=== PATIENT | female | born 1930 | race Caucasian/White ===

== ENCOUNTER 2017-06-02 12:25 | Inpatient (IN) | payer OTHER ==
[2017-06-02 14:45] LABS: URINE PH (Dip) POC 5.5 (5.0-8.5)
[2017-06-02 14:45] LABS: URINE BLOOD (Dip) POC Negative (NEGATIVE); URINE GLUCOSE (Dip) POC Negative (NEGATIVE); URINE KETONES (Dip) POC Trace (NEGATIVE); URINE LEUKOCYTE EST (Dip) POC Negative (NEGATIVE); URINE NITRITE (Dip) POC Negative (NEGATIVE); URINE TOTAL PROTEIN POC Trace (NEGATIVE)
[2017-06-02 15:39] LABS: ADD MAN DIFF? NO
[2017-06-02] MEDS: ONDANSETRON 4 MG INJ IV (15:40)
[2017-06-02] MEDS: morphine 2 MG INJ IV ×3 (15:40→23:52)
[2017-06-02 15:45] LABS: WHITE BLOOD COUNT 6.7 10^3/ul (4.8-10.8)
[2017-06-02 15:45] LABS: ABNORMAL IP MESSAGE 1; BASOPHILS % 0.4 % (0.0-2.0); EOSINOPHILS % 0.3 % (0.0-7.0); HEMATOCRIT 29.6 % (37.0-47.0); HEMOGLOBIN 8.5 g/dl (12.0-16.0); LYMPHOCYTES # 1.1 10^3/ul (0.8-2.9); LYMPHOCYTES % 16.1 % (15.0-51.0); MEAN CORPUSCULAR HEMOGLOBIN 23.2 pg (29.0-33.0); MEAN CORPUSCULAR HGB CONC 28.7 g/dl (32.0-37.0); MEAN CORPUSCULAR VOLUME 80.9 fl (82.0-101.0); MEAN PLATELET VOLUME 9.5 fl (7.4-10.4); MONOCYTE # 0.4 10^3/ul (0.3-0.9); MONOCYTES % 6.3 % (0.0-11.0); NEUTROPHIL # 5.1 10^3/ul (1.6-7.5); NEUTROPHILS % 76.6 % (39.0-77.0); PLATELET COUNT 310 10^3/UL (140-415); RED BLOOD COUNT 3.66 10^6/ul (4.20-5.40); RED CELL DISTRIBUTION WIDTH 17.2 % (11.5-14.5)
[2017-06-02 15:48] LABS: POSITIVE DIFF @See below
[2017-06-02 16:03] LABS: ALANINE AMINOTRANSFERASE 21 IU/L (13-69); ALBUMIN 4.7 g/dl (3.3-4.9); ALBUMIN/GLOBULIN RATIO 1.17; ALKALINE PHOSPHATASE 101 IU/L (42-121); ANION GAP 18 (8-16); ASPARTATE AMINO TRANSFERASE 29 IU/L (15-46); BILIRUBIN,INDIRECT 0.3 mg/dl (0-1.1); BILIRUBIN,TOTAL 0.3 mg/dl (0.2-1.3); BLOOD UREA NITROGEN 21 mg/dl (7-20); CARBON DIOXIDE 27 mmol/L (21-31); CHLORIDE 104 mmol/L (97-110); CREATININE 0.78 mg/dl (0.44-1.00); GLUCOSE 109 mg/dl (70-220); LIPASE 95 U/L (23-300); POTASSIUM 4.7 mmol/L (3.5-5.1); SODIUM 144 mmol/L (135-144); TOTAL PROTEIN 8.7 g/dl (6.1-8.1)
[2017-06-02 16:07] LABS: INR 1.04; PROTIME 13.7 Sec (11.9-14.9); PT RATIO 1.1
[2017-06-02 16:08] LABS: PARTIAL THROMBOPLASTIN TIME 28.6 Sec (25.0-35.0)
[2017-06-02] MEDS ORDERED: HALOPERIDOL 5 MG INJ (16:10)
[2017-06-02] MEDS: HALOPERIDOL 5 MG INJ IM ×2 (16:39→21:32)
[2017-06-02] MEDS: LORAZEPAM 2 MG INJ IV ×2 (18:12→22:24)
[2017-06-02] MEDS: NA PHOSPHATE/BIPHOS 133 ML ENEMA PR (18:30)
[2017-06-02] MEDS ORDERED: NA PHOSPHATE/BIPHOS 133 ML ENEMA PR (19:30)
[2017-06-02] MEDS ORDERED: NACL 0.9% 3 ML SYG IV (19:30)
[2017-06-02] MEDS ORDERED: DOCUSATE SODIUM 100 MG CAP PO (19:30)
[2017-06-02 20:08] LABS: IRON 21 ug/dl (35-150)
[2017-06-02 20:18] LABS: % IRON SATURATION 4 % SAT (22-52); TOTAL IRON BINDING CAPACITY 536 ug/dl (241-421)
[2017-06-02 21:24] LABS: FREE T3 3.97 pg/ml (2.77-5.27)
[2017-06-02 22:04] LABS: FREE T4 (FREE THYROXINE) 1.88 ng/dl (0.85-1.93)
[2017-06-03] MEDS: DIPHENHYDRAMINE 50 MG INJ IV (00:46)
[2017-06-03 01:04] LABS: OCCULT BLOOD STOOL NEGATIVE (NEGATIVE)
[2017-06-03] MEDS: NALOXONE (0.4 MG/ML) INJ IV ×2 (01:20→01:25)
[2017-06-03] MEDS: SOD CHLORIDE 0.9% 1,000 ML IV ×2 (01:26→15:48)
[2017-06-03 01:28] LABS: AADO2 Arterial 563.9 mmHg (7.0-24.0); Arterial Base Excess -6.4 mmol/L (-3.0-3); Arterial Blood Gas Oxygen Sat 87.5 mmHG (95.0-100.0); Arterial COHb 0.3 % (0.0-3.0); Arterial HCO3 23.3 mmol/L (22.0-26.0); Arterial MetHb 0.3 % (0.0-1.5); Arterial Total Hemglobin 9.2 g/dl (12.0-18.0); Arterial pCO2 73.2 mmhg (35-45); MODE MASK - NRB; Site Right Brachial
[2017-06-03] MEDS ORDERED: KETOROLAC 15 MG INJ IV (01:45)
[2017-06-03] MEDS: ALBUTEROL/IPRATROPIUM (NEB) 3 ML AMP HHN ×2 (01:54→20:23)
[2017-06-03 02:45] LABS: Arterial Base Excess -0.9 mmol/L (-3.0-3); Arterial Blood Gas Oxygen Sat 99.9 mmHG (95.0-100.0); Arterial COHb 0.2 % (0.0-3.0); Arterial Fraction of Oxyhgb 99.3 % (93.0-99.0); Arterial HCO3 24.6 mmol/L (22.0-26.0); Arterial MetHb 0.4 % (0.0-1.5); Arterial Total Hemglobin 8.3 g/dl (12.0-18.0); Arterial pCO2 44.3 mmhg (35-45); Blood Gas IEPAP 18/8; MODE MASK - BIPAP; Site LB
[2017-06-03] MEDS: HALOPERIDOL 5 MG INJ IM (05:08)
[2017-06-03 05:20] LABS: ADD MAN DIFF? NO
[2017-06-03 05:25] LABS: WHITE BLOOD COUNT 10.4 10^3/ul (4.8-10.8)
[2017-06-03 05:25] LABS: ABNORMAL IP MESSAGE 1; BASOPHILS % 0.2 % (0.0-2.0); HEMATOCRIT 25.2 % (37.0-47.0); HEMOGLOBIN 7.1 g/dl (12.0-16.0); LYMPHOCYTES # 0.5 10^3/ul (0.8-2.9); LYMPHOCYTES % 4.4 % (15.0-51.0); MEAN CORPUSCULAR HGB CONC 28.2 g/dl (32.0-37.0); MEAN CORPUSCULAR VOLUME 81.6 fl (82.0-101.0); MEAN PLATELET VOLUME 9.4 fl (7.4-10.4); MONOCYTES % 9.2 % (0.0-11.0); NEUTROPHIL # 8.9 10^3/ul (1.6-7.5); NEUTROPHILS % 85.7 % (39.0-77.0); PLATELET COUNT 253 10^3/UL (140-415); RED BLOOD COUNT 3.09 10^6/ul (4.20-5.40); RED CELL DISTRIBUTION WIDTH 17.1 % (11.5-14.5)
[2017-06-03 05:47] LABS: ALANINE AMINOTRANSFERASE 56 IU/L (13-69); ALBUMIN 3.8 g/dl (3.3-4.9); ALBUMIN/GLOBULIN RATIO 1.26; ALKALINE PHOSPHATASE 81 IU/L (42-121); ANION GAP 17 (8-16); ASPARTATE AMINO TRANSFERASE 51 IU/L (15-46); BILIRUBIN,INDIRECT 0.1 mg/dl (0-1.1); BILIRUBIN,TOTAL 0.1 mg/dl (0.2-1.3); BLOOD UREA NITROGEN 20 mg/dl (7-20); CALCIUM 8.6 mg/dl (8.4-10.2); CARBON DIOXIDE 27 mmol/L (21-31); CHLORIDE 108 mmol/L (97-110); CREATININE 0.74 mg/dl (0.44-1.00); GLUCOSE 118 mg/dl (70-220); POTASSIUM 3.9 mmol/L (3.5-5.1); SODIUM 148 mmol/L (135-144); TOTAL PROTEIN 6.8 g/dl (6.1-8.1)
[2017-06-03] MEDS: PANTOPRAZOLE (EC) 40 MG TAB PO (05:49)
[2017-06-03 06:01] LABS: POSITIVE DIFF @See below
[2017-06-03] MEDS: KETOROLAC 15 MG INJ IV ×2 (06:45→12:46)
[2017-06-03] MEDS: ENOXAPARIN 40 MG/0.4 ML SYG SC (09:42)
[2017-06-03 11:21] LABS: HEMATOCRIT 24.4 % (37.0-47.0)
[2017-06-03 11:24] LABS: HEMOGLOBIN 6.9 g/dl (12.0-16.0)
[2017-06-03 11:41] LABS: ALANINE AMINOTRANSFERASE 51 IU/L (13-69); ALBUMIN 3.7 g/dl (3.3-4.9); ALBUMIN/GLOBULIN RATIO 1.27; ALKALINE PHOSPHATASE 84 IU/L (42-121); ANION GAP 15 (8-16); ASPARTATE AMINO TRANSFERASE 61 IU/L (15-46); BILIRUBIN,INDIRECT 0.2 mg/dl (0-1.1); BILIRUBIN,TOTAL 0.2 mg/dl (0.2-1.3); BLOOD UREA NITROGEN 20 mg/dl (7-20); CALCIUM 8.1 mg/dl (8.4-10.2); CARBON DIOXIDE 26 mmol/L (21-31); CHLORIDE 111 mmol/L (97-110); CREATININE 0.75 mg/dl (0.44-1.00); GLUCOSE 79 mg/dl (70-220); POTASSIUM 3.5 mmol/L (3.5-5.1); SODIUM 148 mmol/L (135-144); TOTAL PROTEIN 6.6 g/dl (6.1-8.1)
[2017-06-03 11:49] LABS: D-DIMER 1154.06 ng/ml (<460)
[2017-06-03 12:13] LABS: FERRITIN 6.6 ng/ml (11.1-264.0)
[2017-06-03] MEDS: LORAZEPAM 2 MG INJ IV ×2 (13:08→23:00)
[2017-06-03] MEDS: IODIXANOL LOCM 100 ML BTL (14:30)
[2017-06-03] MEDS: SOD CHLORIDE 0.9% 100 ML (14:33)
[2017-06-03] MEDS: SOD FERRIC GLUC COMPLX 125 MG in SOD CHLORIDE 0.9% 100 ML IVPB (16:10)
[2017-06-03 18:31] LABS: IMMEDIATE SPIN CROSSMATCH 1 1
[2017-06-04] MEDS: LORAZEPAM 2 MG INJ IV ×3 (02:47→12:32)
[2017-06-04] MEDS: HALOPERIDOL 5 MG INJ IM (05:10)
[2017-06-04] MEDS: PANTOPRAZOLE (EC) 40 MG TAB PO (05:39)
[2017-06-04] MEDS: SOD CHLORIDE 0.9% 1,000 ML IV (06:39)
[2017-06-04 07:49] LABS: ADD MAN DIFF? NO
[2017-06-04 07:56] LABS: BASOPHILS % 0.3 % (0.0-2.0); EOSINOPHILS % 0.3 % (0.0-7.0); HEMATOCRIT 28.7 % (37.0-47.0); HEMOGLOBIN 8.6 g/dl (12.0-16.0); LYMPHOCYTES # 0.7 10^3/ul (0.8-2.9); LYMPHOCYTES % 4.8 % (15.0-51.0); MEAN CORPUSCULAR HEMOGLOBIN 24.8 pg (29.0-33.0); MEAN CORPUSCULAR VOLUME 82.7 fl (82.0-101.0); MEAN PLATELET VOLUME 10.1 fl (7.4-10.4); MONOCYTE # 0.9 10^3/ul (0.3-0.9); MONOCYTES % 5.8 % (0.0-11.0); NEUTROPHIL # 13.3 10^3/ul (1.6-7.5); NEUTROPHILS % 88.1 % (39.0-77.0); PLATELET COUNT 239 10^3/UL (140-415); RED BLOOD COUNT 3.47 10^6/ul (4.20-5.40); RED CELL DISTRIBUTION WIDTH 16.8 % (11.5-14.5)
[2017-06-04 07:56] LABS: WHITE BLOOD COUNT 15.1 10^3/ul (4.8-10.8)
[2017-06-04 12:25] LABS: B-TYPE NATRIURETIC PEPTIDE 695 PG/ML (0-450)
[2017-06-04] MEDS: LEVOFLOXACIN 750MG/D5W (PMX) 150 ML IVPB (12:39)
[2017-06-04] MEDS: SOD FERRIC GLUC COMPLX 125 MG in SOD CHLORIDE 0.9% 100 ML IVPB (17:38)
[2017-06-04] MEDS: QUETIAPINE 25 MG TAB PO (20:01)
[2017-06-05] MEDS: PANTOPRAZOLE (EC) 40 MG TAB PO (05:46)
[2017-06-05 07:34] LABS: ADD MAN DIFF? NO
[2017-06-05 07:44] LABS: ABNORMAL IP MESSAGE 1; BASOPHILS % 0.1 % (0.0-2.0); EOSINOPHILS % 0.1 % (0.0-7.0); HEMATOCRIT 29.8 % (37.0-47.0); HEMOGLOBIN 8.6 g/dl (12.0-16.0); LYMPHOCYTES # 0.7 10^3/ul (0.8-2.9); LYMPHOCYTES % 4.8 % (15.0-51.0); MEAN CORPUSCULAR HGB CONC 28.9 g/dl (32.0-37.0); MEAN PLATELET VOLUME 9.9 fl (7.4-10.4); MONOCYTE # 0.9 10^3/ul (0.3-0.9); MONOCYTES % 6.7 % (0.0-11.0); NEUTROPHILS % 87.6 % (39.0-77.0); PLATELET COUNT 252 10^3/UL (140-415); RED BLOOD COUNT 3.59 10^6/ul (4.20-5.40)
[2017-06-05 07:44] LABS: WHITE BLOOD COUNT 13.7 10^3/ul (4.8-10.8)
[2017-06-05 08:00] LABS: ANION GAP 18 (8-16); BLOOD UREA NITROGEN 21 mg/dl (7-20); CALCIUM 9.9 mg/dl (8.4-10.2); CARBON DIOXIDE 26 mmol/L (21-31); CHLORIDE 114 mmol/L (97-110); CREATININE 0.73 mg/dl (0.44-1.00); GLUCOSE 95 mg/dl (70-220); MAGNESIUM 2.1 mg/dl (1.7-2.5); PHOSPHORUS 2.4 mg/dl (2.5-4.9); POTASSIUM 3.6 mmol/L (3.5-5.1); SODIUM 154 mmol/L (135-144)
[2017-06-05 08:09] LABS: POSITIVE DIFF @See below
[2017-06-05] MEDS: QUETIAPINE 25 MG TAB PO ×2 (09:00→21:12)
[2017-06-05 09:10] LABS: AADO2 Arterial 140.2 mmHg (7.0-24.0); Arterial Base Excess -1.2 mmol/L (-3.0-3); Arterial Blood Gas Oxygen Sat 97.2 mmHG (95.0-100.0); Arterial COHb 0.3 % (0.0-3.0); Arterial Fraction of Oxyhgb 96.8 % (93.0-99.0); Arterial HCO3 23.7 mmol/L (22.0-26.0); Arterial MetHb 0.1 % (0.0-1.5); Arterial Total Hemglobin 8.8 g/dl (12.0-18.0); Blood Gas IEPAP 18/8; MODE MASK - BIPAP; Site LB
[2017-06-05] MEDS: SOD FERRIC GLUC COMPLX 125 MG in SOD CHLORIDE 0.9% 100 ML IVPB (17:18)
[2017-06-06] MEDS: LORAZEPAM 2 MG INJ IV (02:00)
[2017-06-06] MEDS: PANTOPRAZOLE (EC) 40 MG TAB PO (06:00)
[2017-06-06] MEDS: QUETIAPINE 25 MG TAB PO (09:22)
[2017-06-06] MEDS ORDERED: VITAMIN A & D 5 GM OINT PACKET TOP (11:05)
[2017-06-06] MEDS: LEVOFLOXACIN 750MG/D5W (PMX) 150 ML IVPB (11:07)
[2017-06-06] MEDS ORDERED: DEXTROSE 5% WATER 500 ML BAG IV ×2 (12:30→18:00)
[2017-06-06 12:49] LABS: ADD MAN DIFF? NO
[2017-06-06 12:51] LABS: WHITE BLOOD COUNT 8.1 10^3/ul (4.8-10.8)
[2017-06-06 12:51] LABS: ABNORMAL IP MESSAGE 1; BASOPHILS % 0.2 % (0.0-2.0); EOSINOPHILS # 0.1 10^3/ul (0.0-0.5); HEMATOCRIT 30.6 % (37.0-47.0); HEMOGLOBIN 8.7 g/dl (12.0-16.0); LYMPHOCYTES # 0.7 10^3/ul (0.8-2.9); MEAN CORPUSCULAR HGB CONC 28.4 g/dl (32.0-37.0); MEAN CORPUSCULAR VOLUME 84.3 fl (82.0-101.0); MEAN PLATELET VOLUME 9.5 fl (7.4-10.4); MONOCYTE # 0.7 10^3/ul (0.3-0.9); MONOCYTES % 8.5 % (0.0-11.0); NEUTROPHIL # 6.5 10^3/ul (1.6-7.5); NEUTROPHILS % 80.6 % (39.0-77.0); PLATELET COUNT 226 10^3/UL (140-415); RED BLOOD COUNT 3.63 10^6/ul (4.20-5.40); RED CELL DISTRIBUTION WIDTH 17.6 % (11.5-14.5)
[2017-06-06 12:52] LABS: POSITIVE DIFF @See below
[2017-06-06] MEDS: morphine 2 MG INJ IV (12:54)
[2017-06-06] MEDS: DEXTROSE 5%-0.45% NACL 1,000 ML IV ×2 (13:00→23:15)
[2017-06-06 13:08] LABS: ANION GAP 17 (8-16); BLOOD UREA NITROGEN 29 mg/dl (7-20); CARBON DIOXIDE 27 mmol/L (21-31); CHLORIDE 117 mmol/L (97-110); GLUCOSE 105 mg/dl (70-220); POTASSIUM 3.7 mmol/L (3.5-5.1); SODIUM 157 mmol/L (135-144)
[2017-06-06 13:28] LABS: AADO2 Arterial 81.6 mmHg (7.0-24.0); Arterial Base Excess 2.3 mmol/L (-3.0-3); Arterial Blood Gas Oxygen Sat 89.7 mmHG (95.0-100.0); Arterial COHb 0.5 % (0.0-3.0); Arterial Fraction of Oxyhgb 89.1 % (93.0-99.0); Arterial HCO3 27.3 mmol/L (22.0-26.0); Arterial MetHb 0.2 % (0.0-1.5); Arterial Total Hemglobin 9.4 g/dl (12.0-18.0); Arterial pCO2 44.5 mmhg (35-45); MODE NASAL CANNULA; Site Right Brachial
[2017-06-06] MEDS: DEXTROSE 5% 250 ML IV (14:45)
[2017-06-06] MEDS: DEXTROSE 5% 500 ML IV (18:00)
[2017-06-06] MEDS: SOD FERRIC GLUC COMPLX 125 MG in SOD CHLORIDE 0.9% 100 ML IVPB (18:14)
[2017-06-07] MEDS: PANTOPRAZOLE (EC) 40 MG TAB PO (06:29)
[2017-06-07] MEDS: DEXTROSE 5%-0.45% NACL 1,000 ML IV ×2 (07:40→18:30)
[2017-06-07 09:27] LABS: ADD MAN DIFF? NO
[2017-06-07 09:31] LABS: ABNORMAL IP MESSAGE 1; BASOPHILS % 0.4 % (0.0-2.0); EOSINOPHILS # 0.2 10^3/ul (0.0-0.5); EOSINOPHILS % 2.9 % (0.0-7.0); HEMATOCRIT 30.5 % (37.0-47.0); HEMOGLOBIN 8.8 g/dl (12.0-16.0); LYMPHOCYTES # 0.9 10^3/ul (0.8-2.9); LYMPHOCYTES % 11.5 % (15.0-51.0); MEAN CORPUSCULAR HEMOGLOBIN 23.9 pg (29.0-33.0); MEAN CORPUSCULAR HGB CONC 28.9 g/dl (32.0-37.0); MEAN CORPUSCULAR VOLUME 82.9 fl (82.0-101.0); MONOCYTE # 0.8 10^3/ul (0.3-0.9); MONOCYTES % 9.9 % (0.0-11.0); NEUTROPHIL # 5.8 10^3/ul (1.6-7.5); NEUTROPHILS % 73.6 % (39.0-77.0); PLATELET COUNT 229 10^3/UL (140-415); RED BLOOD COUNT 3.68 10^6/ul (4.20-5.40); RED CELL DISTRIBUTION WIDTH 17.9 % (11.5-14.5)
[2017-06-07 09:31] LABS: WHITE BLOOD COUNT 7.9 10^3/ul (4.8-10.8)
[2017-06-07 09:32] LABS: POSITIVE DIFF @See below
[2017-06-07 09:54] LABS: ANION GAP 13 (8-16); BLOOD UREA NITROGEN 24 mg/dl (7-20); CALCIUM 9.3 mg/dl (8.4-10.2); CARBON DIOXIDE 30 mmol/L (21-31); CHLORIDE 112 mmol/L (97-110); CREATININE 0.77 mg/dl (0.44-1.00); GLUCOSE 133 mg/dl (70-220); MAGNESIUM 1.8 mg/dl (1.7-2.5); PHOSPHORUS 1.8 mg/dl (2.5-4.9); POTASSIUM 3.1 mmol/L (3.5-5.1); SODIUM 152 mmol/L (135-144)
[2017-06-07] MEDS ORDERED: POLYETHYLENE GLYCOL 3350 119 GM POWDER PO (12:30)
[2017-06-07] MEDS: POLYETHYLENE GLYCOL 17 GM PACKET PO (15:04)
[2017-06-07] MEDS: DEXTROSE 5% WATER 500 ML BAG IV (15:50)
[2017-06-07] MEDS: DEXTROSE 5%-0.45% NACL 500 ML IV (16:05)
[2017-06-07] MEDS: ACETAMINOPHEN 325 MG TAB PO (16:50)
[2017-06-07] MEDS: SOD FERRIC GLUC COMPLX 125 MG in SOD CHLORIDE 0.9% 100 ML IVPB (16:52)
[2017-06-07] MEDS: POTASSIUM CHLORIDE 100 ML IVPB ×2 (20:00→22:00)
[2017-06-08] MEDS: DEXTROSE 5%-0.45% NACL 1,000 ML IV (05:47)
[2017-06-08] MEDS: PANTOPRAZOLE (EC) 40 MG TAB PO (05:47)
[2017-06-08 08:24] LABS: ADD MAN DIFF? NO
[2017-06-08 08:36] LABS: BASOPHIL # 0.1 10^3/ul (0.0-0.1); BASOPHILS % 0.7 % (0.0-2.0); EOSINOPHILS # 0.3 10^3/ul (0.0-0.5); EOSINOPHILS % 3.6 % (0.0-7.0); HEMATOCRIT 30.7 % (37.0-47.0); LYMPHOCYTES # 1.1 10^3/ul (0.8-2.9); LYMPHOCYTES % 14.5 % (15.0-51.0); MEAN CORPUSCULAR HEMOGLOBIN 24.3 pg (29.0-33.0); MEAN CORPUSCULAR HGB CONC 29.3 g/dl (32.0-37.0); MEAN CORPUSCULAR VOLUME 82.7 fl (82.0-101.0); MEAN PLATELET VOLUME 10.2 fl (7.4-10.4); MONOCYTE # 0.8 10^3/ul (0.3-0.9); MONOCYTES % 10.6 % (0.0-11.0); NEUTROPHILS % 69.2 % (39.0-77.0); PLATELET COUNT 235 10^3/UL (140-415); RED BLOOD COUNT 3.71 10^6/ul (4.20-5.40); RED CELL DISTRIBUTION WIDTH 18.6 % (11.5-14.5)
[2017-06-08 08:36] LABS: WHITE BLOOD COUNT 7.2 10^3/ul (4.8-10.8)
[2017-06-08] MEDS ORDERED: POLYETHYLENE GLYCOL 3350 119 GM POWDER PO ×2 (09:00)
[2017-06-08 09:06] LABS: ANION GAP 14 (8-16); BLOOD UREA NITROGEN 17 mg/dl (7-20); CALCIUM 9.6 mg/dl (8.4-10.2); CARBON DIOXIDE 30 mmol/L (21-31); CHLORIDE 111 mmol/L (97-110); CREATININE 0.61 mg/dl (0.44-1.00); GLUCOSE 136 mg/dl (70-220); POTASSIUM 3.7 mmol/L (3.5-5.1); SODIUM 151 mmol/L (135-144)
[2017-06-08] MEDS: DEXTROSE 5% 1,000 ML IV (12:11)
[2017-06-09] MEDS: PANTOPRAZOLE (EC) 40 MG TAB PO (06:30)
[2017-06-09 07:45] LABS: ABNORMAL IP MESSAGE 1; HEMATOCRIT 30.4 % (37.0-47.0); HEMOGLOBIN 8.8 g/dl (12.0-16.0); MEAN CORPUSCULAR HGB CONC 28.9 g/dl (32.0-37.0); MEAN CORPUSCULAR VOLUME 83.1 fl (82.0-101.0); MEAN PLATELET VOLUME 9.6 fl (7.4-10.4); PLATELET COUNT 219 10^3/UL (140-415); RED BLOOD COUNT 3.66 10^6/ul (4.20-5.40); RED CELL DISTRIBUTION WIDTH 18.8 % (11.5-14.5)
[2017-06-09 07:45] LABS: WHITE BLOOD COUNT 5.9 10^3/ul (4.8-10.8)
[2017-06-09 07:53] LABS: ADD MAN DIFF? YES; POSITIVE DIFF @See below
[2017-06-09 08:09] LABS: ANION GAP 12 (8-16); BLOOD UREA NITROGEN 13 mg/dl (7-20); CALCIUM 9.1 mg/dl (8.4-10.2); CARBON DIOXIDE 31 mmol/L (21-31); CHLORIDE 109 mmol/L (97-110); CREATININE 0.58 mg/dl (0.44-1.00); GLUCOSE 102 mg/dl (70-220); POTASSIUM 3.3 mmol/L (3.5-5.1); SODIUM 149 mmol/L (135-144)
[2017-06-09] MEDS: POLYETHYLENE GLYCOL 17 GM PACKET PO (09:04)
[2017-06-09 09:24] LABS: ANISOCYTOSIS 1+ (0-0); BAND NEUTROPHILS #M 0.1 10^3/ul (0.0-0.6); BAND NEUTROPHILS % (M) 2 % (0-4); EOSINOPHILS % (M) 2 % (0-7); GIANT THROMBO% (M) 1 % (0-0); HYPOCHROMASIA 1+ (0-0); LYMPHOCYTES #M 0.7 10^3/ul (0.8-2.9); LYMPHOCYTES % (M) 13 % (15-51); MONOCYTE #M 0.3 10^3/ul (0.3-0.9); MONOCYTES % (M) 6 % (0-11); PLATELET ESTIMATE NORMAL; POIKILOCYTOSIS 1+ (0-0); POLYCHROMASIA 3+ (0-0); REACTIVE LYMPHOCYTES #M 0.2 10^3/ul (0.0-0.0); REACTIVE LYMPHOCYTES% (M) 5 % (0-0); SEG NEUT #M 4.3 10^3/ul (1.6-7.5); SEGMENTED NEUTROPHILS (M) % 72 % (39-77); SMUDGE%M 10 % (0-0)
[2017-06-09] MEDS: D5W-0.45 NACL + KCL 30 MEQ 1,000 ML IV (12:43)
[2017-06-09] MEDS ORDERED: POLYETHYLENE GLYCOL 17 GM PACKET PO (14:30)
[2017-06-10] MEDS: D5W-0.45 NACL + KCL 30 MEQ 1,000 ML IV ×3 (04:24→23:57)
[2017-06-10] MEDS: PANTOPRAZOLE (EC) 40 MG TAB PO (05:56)
[2017-06-10 08:24] LABS: HEMATOCRIT 30.4 % (37.0-47.0); HEMOGLOBIN 8.9 g/dl (12.0-16.0); MEAN CORPUSCULAR HEMOGLOBIN 24.3 pg (29.0-33.0); MEAN CORPUSCULAR HGB CONC 29.3 g/dl (32.0-37.0); MEAN CORPUSCULAR VOLUME 83.1 fl (82.0-101.0); MEAN PLATELET VOLUME 9.7 fl (7.4-10.4); PLATELET COUNT 231 10^3/UL (140-415); POSITIVE DIFF @See below; RED BLOOD COUNT 3.66 10^6/ul (4.20-5.40); RED CELL DISTRIBUTION WIDTH 20.8 % (11.5-14.5)
[2017-06-10 08:24] LABS: WHITE BLOOD COUNT 6.6 10^3/ul (4.8-10.8)
[2017-06-10 08:25] LABS: ADD MAN DIFF? YES
[2017-06-10 08:45] LABS: ANION GAP 11 (8-16); BLOOD UREA NITROGEN 12 mg/dl (7-20); CALCIUM 8.9 mg/dl (8.4-10.2); CARBON DIOXIDE 31 mmol/L (21-31); CHLORIDE 108 mmol/L (97-110); CREATININE 0.62 mg/dl (0.44-1.00); GLUCOSE 115 mg/dl (70-220); MAGNESIUM 1.6 mg/dl (1.7-2.5); PHOSPHORUS 2.7 mg/dl (2.5-4.9); POTASSIUM 3.8 mmol/L (3.5-5.1); SODIUM 146 mmol/L (135-144)
[2017-06-10 09:00] LABS: ANISOCYTOSIS 2+ (0-0); BAND NEUTROPHILS % (M) 1 % (0-4); BURR CELLS 1+ (0-0); EOSINOPHILS % (M) 8 % (0-7); HYPOCHROMASIA 1+ (0-0); LYMPHOCYTES #M 1.3 10^3/ul (0.8-2.9); LYMPHOCYTES % (M) 20 % (15-51); MICROCYTOSIS 1+ (0-0); MONOCYTE #M 0.5 10^3/ul (0.3-0.9); MONOCYTES % (M) 8 % (0-11); MYELOCYTES % (M) 1 % (0-0); PLATELET ESTIMATE NORMAL; POIKILOCYTOSIS 1+ (0-0); POLYCHROMASIA 2+ (0-0); REACTIVE LYMPHOCYTES% (M) 1 % (0-0); SEGMENTED NEUTROPHILS (M) % 61 % (39-77); SMUDGE%M 12 % (0-0)
[2017-06-10] MEDS: MAGNESIUM OXIDE 400 MG TAB PO ×2 (10:00→20:27)
[2017-06-11] MEDS: PANTOPRAZOLE (EC) 40 MG TAB PO (05:34)
[2017-06-11 08:00] LABS: ANION GAP 12 (8-16); BLOOD UREA NITROGEN 9 mg/dl (7-20); CARBON DIOXIDE 30 mmol/L (21-31); CHLORIDE 107 mmol/L (97-110); CREATININE 0.62 mg/dl (0.44-1.00); GLUCOSE 113 mg/dl (70-220); MAGNESIUM 1.7 mg/dl (1.7-2.5); PHOSPHORUS 2.4 mg/dl (2.5-4.9); POTASSIUM 4.2 mmol/L (3.5-5.1); SODIUM 145 mmol/L (135-144)
[2017-06-11] MEDS: MAGNESIUM OXIDE 400 MG TAB PO ×2 (09:01→19:50)
[2017-06-11] MEDS: D5W-0.45 NACL + KCL 30 MEQ 1,000 ML IV (12:49)
[2017-06-11] MEDS: traMADol 50 MG TAB PO (19:50)
[2017-06-12] MEDS: D5W-0.45 NACL + KCL 30 MEQ 1,000 ML IV ×3 (02:30→15:00)
[2017-06-12] MEDS: PANTOPRAZOLE (EC) 40 MG TAB PO (05:48)
[2017-06-12 06:33] LABS: ANION GAP 16 (8-16); BLOOD UREA NITROGEN 7 mg/dl (7-20); CALCIUM 9.4 mg/dl (8.4-10.2); CARBON DIOXIDE 30 mmol/L (21-31); CHLORIDE 105 mmol/L (97-110); CREATININE 0.66 mg/dl (0.44-1.00); GLUCOSE 100 mg/dl (70-220); MAGNESIUM 1.8 mg/dl (1.7-2.5); PHOSPHORUS 3.2 mg/dl (2.5-4.9); POTASSIUM 4.2 mmol/L (3.5-5.1); SODIUM 147 mmol/L (135-144)
[2017-06-12] MEDS: MAGNESIUM OXIDE 400 MG TAB PO ×2 (09:50→21:27)
[2017-06-12] MEDS: NYSTATIN 30 GM POWDER BTL TOP ×2 (13:47→21:27)
[2017-06-12] MEDS: traMADol 50 MG TAB PO (15:19)
[2017-06-12] MEDS: BISACODYL 10 MG SUPP PR (15:19)
[2017-06-13] MEDS: D5W-0.45 NACL + KCL 30 MEQ 1,000 ML IV ×2 (01:23→14:41)
[2017-06-13] MEDS: PANTOPRAZOLE (EC) 40 MG TAB PO (06:08)
[2017-06-13 06:24] LABS: ANION GAP 14 (8-16); BLOOD UREA NITROGEN 7 mg/dl (7-20); CALCIUM 9.2 mg/dl (8.4-10.2); CARBON DIOXIDE 32 mmol/L (21-31); CHLORIDE 103 mmol/L (97-110); CREATININE 0.67 mg/dl (0.44-1.00); GLUCOSE 108 mg/dl (70-220); POTASSIUM 4.7 mmol/L (3.5-5.1); SODIUM 144 mmol/L (135-144)
[2017-06-13] MEDS: NYSTATIN 30 GM POWDER BTL TOP ×2 (09:00→20:54)
[2017-06-13] MEDS: MAGNESIUM OXIDE 400 MG TAB PO ×2 (09:13→20:53)
[2017-06-13 15:48] LABS: ADD UMIC YES; UR ASCORBIC ACID NEGATIVE (NEGATIVE); UR BILIRUBIN (Dip) NEGATIVE (NEGATIVE); UR BLOOD (Dip) 1+ mg/dL (NEGATIVE); UR CLARITY CLEAR (CLEAR); UR COLOR YELLOW (YELLOW); UR GLUCOSE (Dip) NEGATIVE (NEGATIVE); UR KETONES (Dip) NEGATIVE (NEGATIVE); UR LEUKOCYTE ESTERASE (Dip) NEGATIVE Leu/ul (NEGATIVE); UR NITRITE (Dip) NEGATIVE (NEGATIVE); UR RBC 0 /HPF (0-5); UR SPECIFIC GRAVITY (Dip) 1.009 (1.003-1.030); UR TOTAL PROTEIN (Dip) NEGATIVE (NEGATIVE); UR UROBILINOGEN (Dip) NEGATIVE (NEGATIVE); UR WBC 0 /HPF (0-5)
[2017-06-13] MEDS: ONDANSETRON 4 MG INJ IV (19:41)
[2017-06-14 06:31] LABS: ANION GAP 13 (8-16); BLOOD UREA NITROGEN 5 mg/dl (7-20); CALCIUM 9.1 mg/dl (8.4-10.2); CARBON DIOXIDE 31 mmol/L (21-31); CHLORIDE 105 mmol/L (97-110); CREATININE 0.68 mg/dl (0.44-1.00); GLUCOSE 113 mg/dl (70-220); POTASSIUM 4.7 mmol/L (3.5-5.1); SODIUM 144 mmol/L (135-144)
[2017-06-14] MEDS: PANTOPRAZOLE (EC) 40 MG TAB PO (06:51)
[2017-06-14] MEDS: D5W-0.45 NACL + KCL 30 MEQ 1,000 ML IV ×2 (06:52→17:00)
[2017-06-14] MEDS: MAGNESIUM OXIDE 400 MG TAB PO ×2 (09:32→21:23)
[2017-06-14] MEDS: NYSTATIN 30 GM POWDER BTL TOP ×2 (09:32→21:24)
[2017-06-14 11:04] LABS: FOLATE 15.8 ng/ml (2.8-20.0)
[2017-06-14 15:20] LABS: RAPID PLASMA REAGIN NONREACTIVE (NR)
[2017-06-15] MEDS: D5W-0.45 NACL + KCL 30 MEQ 1,000 ML IV ×2 (03:09→05:30)
[2017-06-15] MEDS: PANTOPRAZOLE (EC) 40 MG TAB PO (05:14)
[2017-06-15 07:13] LABS: ANION GAP 12 (8-16); BLOOD UREA NITROGEN 4 mg/dl (7-20); CARBON DIOXIDE 33 mmol/L (21-31); CHLORIDE 103 mmol/L (97-110); CREATININE 0.68 mg/dl (0.44-1.00); GLUCOSE 102 mg/dl (70-220); POTASSIUM 4.4 mmol/L (3.5-5.1); SODIUM 144 mmol/L (135-144)
[2017-06-15] MEDS: MAGNESIUM OXIDE 400 MG TAB PO ×2 (09:41→20:00)
[2017-06-15] MEDS: NYSTATIN 30 GM POWDER BTL TOP ×2 (09:41→20:01)
[2017-06-15] MEDS: MAGNESIUM HYDROXIDE 30ML CUP PO (20:00)
[2017-06-16] MEDS: traMADol 50 MG TAB PO (02:34)
[2017-06-16] MEDS: PANTOPRAZOLE (EC) 40 MG TAB PO (05:07)
[2017-06-16] MEDS: MAGNESIUM OXIDE 400 MG TAB PO ×2 (08:53→22:28)
[2017-06-16] MEDS: NYSTATIN 30 GM POWDER BTL TOP ×2 (08:53→22:27)
[2017-06-16] MEDS ORDERED: QUETIAPINE 25 MG TAB PO (12:00)
[2017-06-16] MEDS: FUROSEMIDE 20 MG INJ IV (14:27)
[2017-06-16] MEDS: ACETAMINOPHEN 500 MG TAB PO (16:22)
[2017-06-16] MEDS: QUETIAPINE 25 MG TAB PO (22:28)
[2017-06-17] MEDS: traMADol 50 MG TAB PO (01:12)
[2017-06-17] MEDS: PANTOPRAZOLE (EC) 40 MG TAB PO (06:00)
[2017-06-17] MEDS: MAGNESIUM OXIDE 400 MG TAB PO (09:10)
[2017-06-17] MEDS: NYSTATIN 30 GM POWDER BTL TOP (09:12)
[2017-06-17] MEDS ORDERED: QUETIAPINE 25 MG TAB PO (18:00)
== END 2017-06-17 20:20 | DRG 388 ==
LOC: TEL 06-04 22:08 → MS2 06-11 17:10 → E/R 12:25 → TEL 06-03 22:52 → MS1 18:33
PROVIDERS: Internal Medicine
PROC: 5A09457 Assistance with Respiratory Ventilation, 24-96 Consecutive Hours, Continuous Positive Airway Pressure (ICD-10-PCS; principal; 2017-06-03)
PROC: 4A133R1 Monitoring of Arterial Saturation, Peripheral, Percutaneous Approach (ICD-10-PCS; 2017-06-03)
PROC: 30233N1 Transfusion of Nonautologous Red Blood Cells into Peripheral Vein, Percutaneous Approach (ICD-10-PCS; 2017-06-03)
DX: K56.41 Fecal impaction (principal); J96.02 Acute respiratory failure with hypercapnia; J69.0 Pneumonitis due to inhalation of food and vomit; J96.01 Acute respiratory failure with hypoxia; G93.49 Other encephalopathy; E87.0 Hyperosmolality and hypernatremia; E86.0 Dehydration; R45.1 Restlessness and agitation; F03.90 Unspecified dementia, unspecified severity, without behavioral disturbance, psychotic disturbance, mood disturbance, and anxiety; D50.9 Iron deficiency anemia, unspecified; K44.9 Diaphragmatic hernia without obstruction or gangrene; T40.2X1A Poisoning by other opioids, accidental (unintentional), initial encounter; Z90.49 Acquired absence of other specified parts of digestive tract; Z85.038 Personal history of other malignant neoplasm of large intestine; Y92.230 Patient room in hospital as the place of occurrence of the external cause
CPT/HCPCS: 36415; 36430; 36600; 70450; 71045; 71275; 73520; 74176; 80048; 80053; 81001; 81003; 82270; 82306; 82607; 82652; 82728; 82746; 82803; 82962; 83540; 83690; 83735; 83880; 84100; 84439; 84443; 84481; 85014; 85018; 85025; 85378; 85610; 85730; 86592; 86850; 86900; 86901; 86920; 87086; 94640; 94660; 94664; 96372; 96374; 96375; 96376; 97110; 97162; 97530; 99285-25; J1940